=== PATIENT | male | born 1980 | race Caucasian/White ===

== ENCOUNTER → 2018-07-05 | Outpatient (CLI) | payer BC ==
[2018-07-05 14:42] LABS: BASO % 0.5 % (0.0-1.0); EOS # 0.2 10^3/uL (0.0-0.50); EOS % 2.9 % (0.0-3.0); HEMATOCRIT 43.6 % (42.0-52.0); HEMOGLOBIN 14.7 g/dl (13.5-17.5); IMMATURE GRANULOCYTE % 0.2 % (0-3.0); LYMPH # 1.3 10^3/uL (1.5-4.5); LYMPH % 20.6 % (24.0-44.0); MEAN CORPUSCULAR HEMOGLOBIN 29.9 pg (27.0-33.0); MEAN CORPUSCULAR HGB CONC 33.7 g/dl (32.0-36.5); MEAN CORPUSCULAR VOLUME 88.6 fl (80.0-96.0); MONO # 0.5 10^3/uL (0.0-0.8); MONO % 7.4 % (0.0-5.0); NEUTROPHILS # 4.4 10^3/uL (1.8-7.7); NEUTROPHILS % 68.4 % (36.0-66.0); PLATELET COUNT, AUTOMATED 218 10^3/uL (150-450); RED BLOOD COUNT 4.92 10^6/uL (4.30-6.10); RED CELL DISTRIBUTION WIDTH 11.9 % (11.5-14.5); WHITE BLOOD COUNT 6.5 10^3/uL (4.0-10.0)
[2018-07-05 15:07] LABS: ERYTHROCYTE SEDIMENTATION RATE 4 mm/hr (0-15); POS COUNT POS FLAG
[2018-07-05 15:11] LABS: RHEUMATOID FACTOR QUANT 25.7 IU/ML (<15.0)
[2018-07-12 14:18] LABS: ANCA-ATYPICAL <1:20 titer (Neg:<1:20); ANGIOTENSIN 1 CONVERTING ENZYM 27 U/L (14-82); ANTINUCLEAR ANTIBODIES DIRECT Negative (Negative); CYTOPLASMIC NEUTROP AB ANCA-C <1:20 titer (Neg:<1:20); HLA-B27 Positive (.); Lyme Disease IgG/IgM Antibodie <0.91 ISR (0.00-0.90); Lyme Disease IgM Ab Quantitati <0.80 index (0.00-0.79); PERINUCLEAR AB ANCA-P <1:20 titer (Neg:<1:20); T PALLIDUM AB (FTA-AB) Non Reactive (Non Reactive); TREPONEMA ANTIBODY IgM <= 1.1 I.V. (.)
== END ==
LOC: M WUC 11:40
DX: M53.3 Sacrococcygeal disorders, not elsewhere classified (principal); H20.9 Unspecified iridocyclitis
CPT/HCPCS: 82164

== ENCOUNTER → 2020-03-05 | Outpatient (CLI) | payer OTHER ==
[2020-03-05 15:05] LABS: CHOLESTEROL LEVEL 203 MG/DL (<200); CHOLESTEROL RISK RATIO 4.142 (<5); HDL CHOLESTEROL 49 MG/DL (>40); LDL CHOLESTEROL 123 MG/DL (<100); NON-HDL-C 154 MG/DL; TRIGLYCERIDES LEVEL 156 MG/DL (<150)
[2020-03-05 15:53] LABS: HIV 1&2 SCREEN CENTAUR NEGATIVE (NEGATIVE)
== END ==
LOC: M WUC 12:49
PROVIDERS: ATTEND Family Medicine Adult Medicine
DX: Z02.1 Encounter for pre-employment examination (principal)